=== PATIENT | female | born 1970 | race Caucasian/White ===

== ENCOUNTER 2016-07-12 05:08 | Day surgery (SDC) | payer OTHER ==
[~2016-07-12] VITALS: Ht 165.1 cm; Wt 53.1 kg
--- NOTE | ~2016-07-12 | O ---
[facility] [address] [place] [address] OPERATIVE REPORT Name: MIKALA CROCKETT Room #: [facility] M..#: [id number] Admission: 07/12/16 Attend Phys: Fran Brizuela MD Discharge: 07/12/16 Date of : 68 Report #: [id number] THIS REPORT FOR: //name// CC: Yonatan Brizuela DATE OF SERVICE: 07/12/2016 Operative Report DATE OF SERVICE: 07/12/2016 PREOPERATIVE DIAGNOSIS: Chronic maxillary and ethmoid sinusitis. POSTOPERATIVE DIAGNOSIS: Chronic maxillary and ethmoid sinusitis. OPERATIVE PROCEDURE: Endoscopic bilateral maxillary antrostomies with removal of tissue and bilateral complete ethmoidectomies. ANESTHESIA: General endotracheal. DESCRIPTION OF PROCEDURE: The patient was taken to the operating room and placed in supine position. General anesthesia was induced by endotracheal intubation. Once adequate general anesthesia was obtained, local nasal anesthesia was induced by submucoperiosteal injection of 1% lidocaine with 1:100,000 epinephrine and topical application of cocaine solution. The patient was then draped in a sterile manner. The nasal endoscope was used to visualize the left nasal cavity and the middle turbinate was deviated medially. The uncinate process was removed using the microdebrider and the natural opening ____ maxillary sinus was located. It was enlarged in a posterior inferior manner by removing the soft fontanelle. Within the sinus itself was thick purulence and this was suctioned and removed. An ethmoidectomy was performed by removing the ethmoidal bulla. Then, following the ethmoid air cells back to and through the basal lamella and then forward along the lamina papyracea and fovea ethmoidalis to complete the ethmoidectomy anteriorly. Surgifoam was placed into the ethmoid cavity and middle meatus for hemostasis. The exact same procedure was performed on the right side. FloSeal was placed on the right side as well. The patient tolerated the procedure well. Blood loss was approximately 20 mL. The patient was then awoken and taken to the recovery room in stable condition for postoperative monitoring. <ELECTRONICALLY SIGNED> By: Fran Brizuela MD 07/26/16 0819 [id number] Fran Brizuela MD /nt
--- NOTE | ~2016-07-12 | H ---
[facility] [place] [address] [place] [address] HISTORY AND PHYSICAL Name: MIKALA CROCKETT Room #: [facility]..#: [id number] Admission: 07/12/16 Attend Phys: Fran Brizuela MD Discharge: 07/12/16 Date of : 68 Report #: [id number] THIS REPORT FOR: //name// CC: Yonatan Brizuela DATE OF PROCEDURE: 07/12/2016. HISTORY OF PRESENT ILLNESS: The patient has sinus problems for the last several years. She has been on multiple courses of antibiotics, and has used allergy medications and steroid nasal spray. A CT scan of her sinuses showed almost complete opacification of bilateral ethmoid sinuses with fluid and mucous membrane thickening and air bubbles in the bilateral maxillary sinuses. She had fluid and mucous membrane thickening in the floors of the frontal sinuses on both sides. PAST MEDICAL HISTORY: Otherwise significant for asthma. MEDICATIONS: Tramadol and albuterol. ALLERGIES: She is allergic to PENICILLIN. PHYSICAL EXAMINATION: She had a reasonable anterior nasal airway with some crusting and mild swelling. Her oropharynx and oral cavity were clear. She had no adenopathy or masses in her neck. IMPRESSION: Chronic maxillary and ethmoid sinusitis. PLAN: Endoscopic bilateral maxillary antrostomies and complete ethmoidectomies. <ELECTRONICALLY SIGNED> By: Fran Brizuela MD 07/26/16 0818 [id number] MD nils Ram
[~2016-07-12 05:08] MED LIST: ACIDOPHILUS1 EAC2 PO; AMBIEN PO; ASPIR 8181 MG PO; BIOTIN5 M1 PO; CARISOPRODOL 3350 MG PO; CLONAZEPAM 0.50.5 M1 PO; ERY-TAB500 MG PO; FLEXERIL PO; FLONASE 0.05%50 MCG NASAL; METHOCARBAMOL PO; NAPROSYN500 MG PO; NOHOMEMEDICATIONS; NORCO 5-325 TA1 EACH PO; PATANOL5 ML OPHTHALMIC; POTASSIUM PO; PRESTIQUE; PROMETHAZINE HC25 M2; ROBAXIN 750 MG750 M1 PO; TRAMADOL 50 MG50 MG PO; ULTRAM 50MG TAB50 MG PO; VENTOLIN HFA 1818 GM INH; VICODIN 5-5001 EACH PO; VITAMIN D3400 UNI1 PO; VITAMIN E1000 UNI2 PO; VITAMINC500 PO; XANAX XR1 MG; ZYRTEC10 M4 PO
[2016-07-12 09:08] VITALS: BP 113/70
[2016-07-12] MEDS ORDERED: PERCOCET 7.5-31 EACH PO (09:49)
[2016-07-12] MEDS ORDERED: BACTRIM DS TAB1 EACH PO (09:49)
[2016-07-12 10:24] VITALS: BP 113/70
== END 2016-07-12 11:20 | disposition home or self-care (01) ==
LOC: OR 05:08 → TBA 05:08 → OR 08:40
DX: J32.2 Chronic ethmoidal sinusitis (principal); J32.0 Chronic maxillary sinusitis; F41.9 Anxiety disorder, unspecified; J45.909 Unspecified asthma, uncomplicated; F32.9 Major depressive disorder, single episode, unspecified; Z87.891 Personal history of nicotine dependence; Z98.890 Other specified postprocedural states
CPT/HCPCS: 50010; 50101; 50386; 50398; 51751; 56635; 62110; 62900; 64032; 70005